=== PATIENT | male | born 1945 | race Caucasian/White ===

== ENCOUNTER 2018-10-06 12:03 | Observation (INO) | payer MEDICARE ==
[~2018-10-06] VITALS: Ht 182.9 cm; Wt 105.2 kg
--- OUTSIDE RECORDS SUMMARY | 2018-10-06 12:06 | XMS REPORT | Clinical Summary ---
Author Author [facility] Address Unknown Phone Unavailable Care Team Providers Care Sales Product Manager Name Role Phone Sharpless PCP Allergies No Known Allergies Medications Not on file Active Problems Not on file Social History Date Tobacco Use Types Packs/Day Years Used Never Assessed Sex Assigned at Date Recorded Not on file Industry Job Start Date Occupation Not on file Not on file Not on file Travel End Travel History Travel Start No recent travel history available. Last Filed Vital Signs Not on file Plan of Treatment Not on file Results Not on fileafter 10/05/2017 Insurance Payer Benefit Subscriber ID Type Phone Address Plan / Group [facility] x[facility]xx MEDICARE ADV #[id number] [facility] (Home) [place] [address]
[2018-10-06] MEDS ORDERED: ONDANSETRON HCL INJ 2MG/ML 2ML 2 MG/ML VIAL IV ONE (12:45)
[2018-10-06] MEDS ORDERED: DIATRIZOATE MEGL/DIATRIZOA SOD 30 ML BTL PO ONE (12:52)
[2018-10-06] MEDS ORDERED: MORPHINE SULFATE INJ 4 MG/ML INJ 1ML IV ONE (13:00)
[2018-10-06 13:04] LABS: BASOPHILS % 0.3 % (0.0-1.0); EOSINOPHILS # (AUTO) 0.1 (0.0-0.4); EOSINOPHILS % 0.9 % (0.0-6.0); HEMATOCRIT 40.5 % (38.2-49.6); HEMOGLOBIN 13.8 g/dL (14.0-18.0); LYMPHOCYTES # (AUTO) 2.1 (1.0-3.2); LYMPHOCYTES % 15.9 % (18.0-39.1); MEAN CORPUSCULAR HEMOGLOBIN 30.1 pg (28-32); MEAN CORPUSCULAR HGB CONC 34.1 g/dL (31-35); MEAN CORPUSCULAR VOLUME 88.2 fL (81-99); MONOCYTES # (AUTO) 1.1 (0.2-0.8); MONOCYTES % 8.1 % (4.4-11.3); NEUTROPHILS # (AUTO) 9.6 (2.1-6.9); NEUTROPHILS % 74.3 % (38.7-80.0); PLATELET COUNT 130 x10e3/uL (140-360); RED BLOOD COUNT 4.59 x10e6/uL (4.3-5.7); RED CELL DISTRIBUTION WIDTH 13.1 % (11.7-14.4)
[2018-10-06 13:05] LABS: BILIRUBIN,URINE SMALL (NEGATIVE); CLARITY,URINE SL CLOUDY (CLEAR); COLOR,URINE YELLOW (YELLOW); KETONES,URINE TRACE (NEGATIVE); LEUKOCYTE ESTERASE ,URINE NEGATIVE (NEGATIVE); NITRITE,URINE NEGATIVE (NEGATIVE); PROTEIN,URINE DIPSTICK 2+ (NEGATIVE); URINE UROBILINOGEN 1 mg/dL (0.2 - 1)
[2018-10-06 13:21] LABS: BACTERIA,URINE MANY /HPF; EPITHELIAL CELLS,URINE MANY /LPF; WBC,URINE (MAN) 0-5 /HPF (0-5)
[2018-10-06 13:23] LABS: ALBUMIN 3.1 g/dL (3.5-5.0); ALBUMIN/GLOBULIN RATIO 0.9 (0.8-2.0); ANION GAP 12.6 mmol/L (8-16); CALCIUM 9.3 mg/dL (8.4-10.2); CREATININE, SERUM 1.69 mg/dL (0.72-1.25); POTASSIUM 3.6 mmol/L (3.5-5.1)
--- NOTE | 2018-10-06 14:54 | Diagnostic Imaging Report ---
EXAM: CT Abdomen and Pelvis WITHOUT contrast INDICATION: ^LLQ abdominal pain r/o diverticulitis COMPARISON: None. TECHNIQUE: Abdomen and pelvis were scanned utilizing a multidetector helical scanner from the lung base to the pubic symphysis without administration of IV contrast. Absence of intravenous contrast decreases sensitivity for detection of focal lesions and vascular pathology. Coronal and sagittal reformations were obtained. Routine protocol was performed. IV CONTRAST: None ORAL CONTRAST: Gastrografin COMPLICATIONS: None RADIATION DOSE: Total DLP: 669.13 mGy*cm Estimated effective dose: (DLP x 0.015 x size factor) mSv CTDIvol has been reviewed. It is below the limits set by the Radiation Protocol Committee (RPC). Dose modulation, iterative reconstruction, and/or weight based adjustment of the mA/kV was utilized to reduce the radiation dose to as low as reasonably achievable. FINDINGS: LINES and TUBES: None. LOWER THORAX: Unremarkable HEPATOBILIARY: The liver is diffuse hypodense compared to the spleen, consistent with diffuse hepatic diffuse hepatic steatosis. No focal hepatic lesions. No biliary ductal dilation. GALLBLADDER: No radio-opaque stones or sludge. No wall thickening. Decompressed. SPLEEN: No splenomegaly. PANCREAS: No focal masses or ductal dilatation. ADRENALS: No adrenal nodules KIDNEYS/URETERS: No hydronephrosis. 6.9 cm cyst in the inferior pole of the right kidney. 3.6 cm cyst in the superior pole of the left kidney. No stones. GI TRACT: No abnormal distention, wall thickening, or evidence of bowel obstruction. Acutely inflamed sigmoid colon with multiple diverticula and wall thickening and surrounding inflammatory changes. Additional scattered colonic diverticula. Appendix is normal. PELVIC ORGANS/BLADDER: Unremarkable. LYMPH NODES: No lymphadenopathy. VESSELS: There is mild atherosclerotic disease in the aorta and major arterial branches. Severe atherosclerotic calcifications in the left common iliac artery with dilatation measuring up to 2.2 cm. Right common iliac artery measures 1.3 cm. PERITONEUM / RETROPERITONEUM: No free air or fluid. BONES: There are degenerative changes in the lumbar spine. SOFT TISSUES: Bilateral fat-containing direct inguinal hernias. Surgical clip in the right inguinal region. Fluid in the left inguinal canal. IMPRESSION: 1. Significant acute sigmoid diverticulitis. Given patient's age, recommend follow-up with colonoscopy to exclude possible underlying neoplasm. 2. Diffuse hepatic steatosis. Signed by: Dr. Joseph Umanzor M.D. on 10/06/2018 2:51 PM
[2018-10-06] MEDS ORDERED: ONDANSETRON HCL INJ 2MG/ML 2ML 2 MG/ML VIAL IV PRN (15:15)
--- OUTSIDE RECORDS SUMMARY | 2018-10-06 15:16 | XMS REPORT ---
Author Author [facility] Address Unknown Phone Unavailable Care Team Providers Care Antique Clocks Repairer Name Role Phone GAYATHRI Christiane JESSICA Unavailable Unavailable Problems This patient has no known problems. Allergies, Adverse Reactions, Alerts This patient has no known allergies or adverse reactions. Medications This patient has no known medications. Results Test Description Test Time Test Comments Text Results Atomic Results Result Comments CT ABDOMEN/PELVIS WO 2018-10-06 14:46:00 [place] [address] Patient Name: SULEMAN BRADSHAW MR #: [id number] : 1945 Age/Sex: 73/M Req #: [id number] Adm Physician: Ordered by: ORLIN HAILE ALARM ADJUSTER Report #: [id number] Location: ER Room/Bed: Procedure: [id number] CT/CT ABDOMEN/PELVIS WO Exam Date: 10/06/18 Exam Time: 1400 REPORT STATUS: Signed EXAM: CT Abdomen and Pelvis WITHOUT contrast INDIC ATION: LLQ abdominal pain r/o diverticulitis COMPARISON: None. TECHNIQUE: Abdomen and pelvis were scanned utilizing a multidetector helical scanner from the lung base to the pubic symphysis without administration of IV contrast. Absence of intravenous contrast decreases sensitivity for detection of focal lesions and vascular pathology. Coronal and sagittal reformations were obtained. Routine protocol was performed. IV CONTRAST: None ORAL CONTRAST: Gastrografin COMPLICATIONS: None RADIATION DOSE: Total DLP: 669.13 mGy*cm Estimated effective dose: (DLP x 0.015 x size factor) mSv CTDIvol has been reviewed. It is below the limits set by the Radiation Protocol Committee (RPC). Dose modulation, iterative reconstruction, and/or weight based adjustment of the mA/kV was utilized to reduce the radiation dose to as low as reasonably achievable. FINDINGS: LINES and TUBES: None. LOWER THORAX: Unremarkable HEPATOBILIARY: The liver is diffuse hypodense compared to the spleen, consistent with diffuse hepatic diffuse hepatic steatosis. No focal hepatic lesions. No biliary ductal dilation. GALLBLADDER: No radio-opaque stones or sludge. No wall thickening. Decompressed. SPLEEN: No splenomegaly. PANCREAS: No focal masses or ductal dilatation. ADRENALS: No adrenal nodules KIDNEYS/URETERS: No hydronephrosis. 6.9 cm cyst in the inferior pole of the right kidney. 3.6 cm cyst in the superior pole of the left kidney. No stones. GI TRACT: No abnormal distention, wall thickening, or evidence of bowel obstruction. Acutely inflamed sigmoid colon with multiple diverticula and wall thickening and surrounding inflammatory changes. Additional scattered colonic diverticula. Appendix is normal. PELVIC ORGANS/BLADDER: Unremarkable. LYMPH NODES: No lymphadenopathy. VESSELS: There is mild atherosclerotic disease in the aorta and major arterial branches. Severe atherosclerotic calcifications in the left common iliac artery with dilatation measuring up to 2.2 cm. Right common iliac artery measures 1.3 cm. PERITONEUM / RETROPERITONEUM: No free air or fluid. BONES: There are degenerative changes in the lumbar spine. SOFT TISSUES: Bilateral fat-containing direct inguinal hernias. Surgical clip in the right inguinal region. Fluid in the left inguinal canal. IMPRESSION: 1. Significant acute sigmoid diverticulitis. Given patient's age, recommend follow-up with colonoscopy to exclude possible underlying neoplasm. 2. Diffuse hepatic steatosis. Signed by: Dr. [place] Umanzor M.D. on 10/06/2018 2:51 PM Dictated By: FLORIDA UMANZOR MD [id number] Transcribed By: SHIELA on 10/06/18 145 COPY TO: ORLIN HAILE NP
--- OUTSIDE RECORDS SUMMARY | 2018-10-06 15:16 | XMS REPORT | Clinical Summary ---
Author Author [facility] Address Unknown Phone Unavailable Care Team Providers Care Derrick Builder Name Role Phone Sharpless PCP Allergies No [...] ID Type Phone Address Plan / [facility] MEDIC[facility] ADV #[id number] [facility] (Home) [place] [address]
--- NOTE | 2018-10-06 15:35 | NUR ---
multiple attempts to call report and placed on continuous hold.
--- NOTE | 2018-10-06 15:44 | NUR ---
pt is trying to reach his home health nurse to obtain his medication list still.
[2018-10-06] MEDS ORDERED: LEVOFLOXACIN 500MG/D5W 100ML 100 ML IV SCH ×2 (16:00→16:45)
[2018-10-06] MEDS: METRONIDAZOLE 500MG/NS 100ML 100 ML IV SCH (16:09)
[2018-10-06] MEDS: SODIUM CHLORIDE 0.9% 1000ML 1,000 ML IV SCH ×2 (16:09→23:03)
[2018-10-06 17:00] VITALS: BP 172/84
--- NOTE | 2018-10-06 17:00 | NUR ---
RECEIVED TO RM AAOX3 NO DISTRESS NOTED, IVF INFUSING TO L AC 20G NO SS OF INFILTRATION NOTED, ORIENTED TO RM VOICED UNDERSTANDING, DENIES PAIN AT THIS TIME, PT USES [facility]IGN[facility] AND HAS A HOME HEALTH NURSE THAT PROVIDES CARE FOR HIM 3X A WEEK, PT HAS NO HOME MEDICATIONS WITH HIM TO VERIFY, SPOKE WITH NICK GEOLOGICAL TECHNICIAN OF [facility] [phone], FOR VERIFICATION OF PATIENTS HOME MEDICATIONS, COMPANY WILL FAX MEDICATIONS TO HOSPITAL FAX NUMBER [phone] PROVIDE. CALL LIGHT IN REACH BED LOW/LOCKED POSITION, WILL CONTINUE TO MONITOR
[2018-10-06] MEDS ORDERED: CLONIDINE HCL 0.1 MG TAB PO PRN (17:45)
[2018-10-06] MEDS: LEVOFLOXACIN 500MG/D5W 100ML 100 ML IV SCH (18:31)
--- NOTE | 2018-10-06 19:33 | NUR ---
REPORT GIVEN TO ONCOMING SHIFT, PT STABLE, NO DISTRESS NOTED,CALL LIGHT IN REACH
[2018-10-06 21:00] VITALS: BP 191/89
[2018-10-06 23:02] VITALS: BP 191/89
[2018-10-07] VITALS (9 sets, daily range): BP systolic 145–201; BP diastolic 66–91
[2018-10-07] MEDS: METRONIDAZOLE 500MG/NS 100ML 100 ML IV SCH ×3 (01:44→17:32)
[2018-10-07] MEDS ORDERED: ASPIRIN81 MG PO (02:53)
[2018-10-07] MEDS ORDERED: LISINOPRIL10 MG PO (02:53)
[2018-10-07] MEDS ORDERED: ZETIA10 MG PO (02:53)
[2018-10-07] MEDS ORDERED: OMEPRAZOLE20 MG PO (02:53)
[2018-10-07] MEDS ORDERED: VOLTAREN100 GM (02:53)
[2018-10-07] MEDS ORDERED: SARNA ANTI-ITC222 ML TP (02:53)
[2018-10-07] MEDS ORDERED: ATENOLOL50 MG (02:53)
[2018-10-07] MEDS ORDERED: ALLEGRA ALLERG180 MG PO (02:53)
[2018-10-07] MEDS ORDERED: POTASSIUM BICARB1 GM PO (02:53)
[2018-10-07] MEDS ORDERED: BENZONATATE100 MG PO (02:53)
[2018-10-07] MEDS ORDERED: BENADRYL ITCH28.3 GM EXT (02:53)
[2018-10-07] MEDS ORDERED: VITAMIN D400 UNIT PO (02:53)
[2018-10-07] MEDS: SODIUM CHLORIDE 0.9% 1000ML 1,000 ML IV SCH (05:36)
[2018-10-07 06:25] LABS: BASOPHILS # (AUTO) 0.1 (0.0-0.1); BASOPHILS % 0.5 % (0.0-1.0); EOSINOPHILS # (AUTO) 0.2 (0.0-0.4); EOSINOPHILS % 1.2 % (0.0-6.0); HEMATOCRIT 37.5 % (38.2-49.6); HEMOGLOBIN 12.8 g/dL (14.0-18.0); LYMPHOCYTES # (AUTO) 2.5 (1.0-3.2); LYMPHOCYTES % 20.4 % (18.0-39.1); MEAN CORPUSCULAR HEMOGLOBIN 29.8 pg (28-32); MEAN CORPUSCULAR HGB CONC 34.1 g/dL (31-35); MEAN CORPUSCULAR VOLUME 87.4 fL (81-99); MONOCYTES # (AUTO) 0.9 (0.2-0.8); MONOCYTES % 7.1 % (4.4-11.3); NEUTROPHILS # (AUTO) 8.5 (2.1-6.9); NEUTROPHILS % 70.3 % (38.7-80.0); PLATELET COUNT 120 x10e3/uL (140-360); RED BLOOD COUNT 4.29 x10e6/uL (4.3-5.7); RED CELL DISTRIBUTION WIDTH 13.1 % (11.7-14.4)
[2018-10-07 06:49] LABS: ALBUMIN 2.8 g/dL (3.5-5.0); ALBUMIN/GLOBULIN RATIO 0.9 (0.8-2.0); ANION GAP 13.5 mmol/L (8-16); CALCIUM 9.1 mg/dL (8.4-10.2); CREATININE, SERUM 1.36 mg/dL (0.72-1.25); POTASSIUM 3.5 mmol/L (3.5-5.1)
--- NOTE | 2018-10-07 07:00 | NUR ---
BEDSIDE ROUNDS COMPLETE NO DISTRESS NOTED, UPDATED ON POC VOICED UNDERSTANDING, DENIES PAIN AT THIS TIME, IVF INFUSING TO L AC 20G NO SS OF INFILTRATION NOTED, NO OTHER CO VOICED CALL LIGHT IN REACH WILL CONTINUE OT MONITOR
[2018-10-07] MEDS ORDERED: ACETAMINOPHEN 325 MG TAB PO PRN (11:30)
[2018-10-07] MEDS: MORPHINE SULFATE INJ 4 MG/ML INJ 1ML IV PRN ×2 (13:52→19:41)
[2018-10-07] MEDS ORDERED: LISINOPRIL 20 MG TAB PO SCH (17:00)
[2018-10-07] MEDS: LOSARTAN POTASSIUM 100 MG TAB PO SCH (17:32)
[2018-10-07] MEDS: LEVOFLOXACIN 500MG/D5W 100ML 100 ML IV SCH (18:34)
[2018-10-08] VITALS: BP 165/83
[2018-10-08] MEDS: METRONIDAZOLE 500MG/NS 100ML 100 ML IV SCH ×2 (00:42→08:00)
[2018-10-08 04:00] VITALS: BP 143/81
[2018-10-08 06:01] LABS: BASOPHILS # (AUTO) 0.1 (0.0-0.1); BASOPHILS % 0.6 % (0.0-1.0); EOSINOPHILS # (AUTO) 0.2 (0.0-0.4); EOSINOPHILS % 1.7 % (0.0-6.0); HEMATOCRIT 38.3 % (38.2-49.6); HEMOGLOBIN 12.5 g/dL (14.0-18.0); LYMPHOCYTES # (AUTO) 2.7 (1.0-3.2); LYMPHOCYTES % 24.8 % (18.0-39.1); MEAN CORPUSCULAR HEMOGLOBIN 29.4 pg (28-32); MEAN CORPUSCULAR HGB CONC 32.6 g/dL (31-35); MEAN CORPUSCULAR VOLUME 90.1 fL (81-99); MONOCYTES # (AUTO) 0.6 (0.2-0.8); MONOCYTES % 5.8 % (4.4-11.3); NEUTROPHILS # (AUTO) 7.2 (2.1-6.9); NEUTROPHILS % 66.5 % (38.7-80.0); PLATELET COUNT 123 x10e3/uL (140-360); RED BLOOD COUNT 4.25 x10e6/uL (4.3-5.7)
[2018-10-08 06:21] LABS: ANION GAP 8.6 mmol/L (8-16); CALCIUM 8.8 mg/dL (8.4-10.2); CREATININE, SERUM 1.53 mg/dL (0.72-1.25); POTASSIUM 4.6 mmol/L (3.5-5.1)
--- NOTE | 2018-10-08 07:15 | NUR ---
RECEIVED PATIENT ASLEEP IN BED NO SIGNS OF DISTRESS. BED LOW, WHEELS LOCKED, SIDE RAILS X2. CALL LIGHT IN REACH WILL CONTINUE TO MONITOR.
[2018-10-08] MEDS: LOSARTAN POTASSIUM 100 MG TAB PO SCH (08:00)
[2018-10-08 08:12] VITALS: BP 143/81
[2018-10-08] MEDS ORDERED: FAMOTIDINE 20 MG TAB PO SCH (09:00)
[2018-10-08] MEDS ORDERED: EZETIMIBE 10 MG TAB PO SCH (09:00)
[2018-10-08] MEDS ORDERED: ATENOLOL 50 MG TAB PO SCH (09:00)
--- NOTE | 2018-10-08 09:15 | NUR ---
PATIENT A/O X3, EVEN RESPIRATIONS ON RA. PATIENT AMBULATES WITH WALKER. BOWEL SOUNDS ACTIVE, SKIN INTACT, NO EDEMA. LEFT AC 20 GAUGE IV SL. VITAL SIGNS STABLE. NO DISCOMFORT OR SIGNS OF DISTRESS AT THIS TIME. CALL LIGHT IN REACH. WILL CONTINUE TO MONITOR.
[2018-10-08 09:58] VITALS: BP 143/81
--- NOTE | 2018-10-08 10:09 | NUR ---
EDUCATED ABOUT IMM, SIGNED, FILED IN CHART, WITH COPY LEFT WITH FAMILY AT BEDSIDE.
[2018-10-08 11:49] VITALS: BP 174/89
--- NOTE | 2018-10-08 12:13 | Discharge Summary ---
PRIMARY CARE PHYSICIAN: Dr. Barbara Lepe. FINAL DIAGNOSIS: Acute diverticulitis. SECONDARY DIAGNOSES: 1. Stage 3 chronic kidney disease, stable. 2. Mild thrombocytopenia, stable. CONSULTANTS: None. PROCEDURES/STUDIES PERFORMED: CT of the abdomen pelvis. HISTORY: Per H and P. HOSPITAL COURSE: The patient was admitted. The patient responded to IV Levaquin and Flagyl very well, currently the patient is pain free, tolerating soft diet and will go home today on five more days of oral Levaquin and Flagyl. The patient will likely need an outpatient colonoscopy once the infection has completely resolved. I have updated his primary care doctor about this hospitalization. The patient was seen and examined today. Of note, there is some possibility that the patient might be allergic to FEROZ inhibitor. I will switch his FEROZ inhibitor to the losartan. CONDITION ON DISCHARGE: Improved. DISCHARGE MEDICATIONS: Please see medication reconciliation form. MD HEMALATHA Mcarthur/MICHELLE /[id number] cc: [facility]
[2018-10-08] MEDS ORDERED: LEVAQUIN500 MG PO (12:36)
[2018-10-08] MEDS ORDERED: FLAGYL250 MG PO (12:36)
[2018-10-08] MEDS ORDERED: LOSARTAN POTASS25 MG PO (12:37)
--- NOTE | 2018-10-08 12:55 | NUR ---
REMOVED PATIENTS IV. CATHETER TIP INTACT AND PRESSURE DRESSING APPLIED.
--- NOTE | 2018-10-08 13:27 | NUR ---
PATIENT DISCHARGED FROM FACILITY. PATIENT GATHERED ALL PERSONAL BELONGINGS, DISCHARGE INSTRUCTIONS, FOLLOW UP INFORMATION AND PRESCRIPTIONS. PATIENT VERBALIZED UNDERSTANDING. LEFT UNIT IN WHEELCHAIR AND WENT HOME VIA PRIVATE AUTO. NO SIGNS OF DISTRESS LEAVING FACILITY.
== END 2018-10-08 13:29 | disposition home or self-care (01) ==
LOC: ER 12:03 → INTOOBSV 15:03 → ERHOLD 15:03 → MED/SURG 17:05
PROVIDERS: ADMIT Internal Medicine; ATTEND Internal Medicine
DX: K57.32 Diverticulitis of large intestine without perforation or abscess without bleeding (principal); L50.8 Other urticaria; N18.3 Chronic kidney disease, stage 3 (moderate); F03.90 Unspecified dementia, unspecified severity, without behavioral disturbance, psychotic disturbance, mood disturbance, and anxiety; Z86.73 Personal history of transient ischemic attack (TIA), and cerebral infarction without residual deficits; M54.9 Dorsalgia, unspecified; F17.210 Nicotine dependence, cigarettes, uncomplicated; Z82.49 Family history of ischemic heart disease and other diseases of the circulatory system; N17.9 Acute kidney failure, unspecified; D69.6 Thrombocytopenia, unspecified; I12.9 Hypertensive chronic kidney disease with stage 1 through stage 4 chronic kidney disease, or unspecified chronic kidney disease; Z94.0 Kidney transplant status
CPT/HCPCS: 36415 ×3; 74176; 80048; 80053 ×2; 81001; 82150; 83690; 85025 ×3; 99284; G0378 ×3; J1956 ×2; J2270; J2405; J7030 ×2

== ENCOUNTER 2019-04-06 17:52 | Emergency (ER) | payer MEDICARE ==
[~2019-04-06] VITALS: Ht 208.3 cm; Wt 105.2 kg
[~2019-04-06 17:52] MED LIST: ALLEGRA ALLERG180 MG PO; ASPIRIN81 MG PO; ATENOLOL50 MG; BENADRYL ITCH28.3 GM EXT; BENZONATATE100 MG PO; FLAGYL250 MG PO; LEVAQUIN500 MG PO; LISINOPRIL10 MG PO; LOSARTAN POTASS25 MG PO; OMEPRAZOLE20 MG PO; POTASSIUM BICARB1 GM PO; SARNA ANTI-ITC222 ML TP; VITAMIN D400 UNIT PO; VOLTAREN100 GM; ZETIA10 MG PO
--- NOTE | 2019-04-06 18:30 | NUR ---
NO ANSWER FOR WRITTEN DISCHARGE INSTRUCTIONS AT THIS TIME
== END 2019-04-06 18:30 | disposition home or self-care (01) ==
LOC: ER 17:52
DX: H92.02 Otalgia, left ear (principal); W22.8XXA Striking against or struck by other objects, initial encounter; Y93.E1 Activity, personal bathing and showering; Y92.002 Bathroom of unspecified non-institutional (private) residence as the place of occurrence of the external cause
CPT/HCPCS: 99282

== ENCOUNTER 2020-04-10 11:40 | Emergency (ER) | payer MEDICARE ==
[~2020-04-10] VITALS: Ht 208.3 cm; Wt 105.2 kg
--- NOTE | 2020-04-10 11:53 | Emergency Department Note ---
History of Present Illnes History of Present Illness Chief Complaint: Genitourinary History of Present Illness This is a 74 year old male Chief Complaint Comment Patient in from home with complaints of lower abdominal pain that started about 4 days ago which has progressed to diarrhea today. Patient reports he was admitted for similar symptoms about two years ago but had blood in his urine that time. Patient denies blood in his urine on this visit. Patient reports that he feels like it is going away on its own and is feeling better but thought he should get checked out anyways. Historian: Patient Arrival Mode: Car Fmd Teacher Required: No Onset (how long ago): day(s) (4) Location: Lower pelvis Quality: burning Radiation: Reports non-radiation Severity: mild Onset quality: gradual Duration (how long): day(s) (4) Timing of current episode: intermittent Progression: improving Chronicity: recurrent Context: Denies recent illness, Denies recent surgery Relieving factors: none Exacerbating factors: none Associated symptoms: Reports denies other symptoms Treatments prior to arrival: none Past Medical/Family History Physician Review I have reviewed the patient's past medical and family history. Any updates have been documented here. Past Medical History Recent Fever: No Clinical Suspicion of Infectio: No New/Unexplained Change in Ment: No Past Medical History: Hypertension, CVA Other Medical History: DEMENTIA Past Surgical History: Hernia Repair Other Surgery: UNKNOWN Other Last Tetanus: UNKNOWN Review of Systems Review of Systems Constitutional: Reports no symptoms EENTM: Reports no symptoms Cardiovascular: Reports no symptoms Respiratory: Reports no symptoms Gastrointestinal: Reports as per HPI, Reports abdominal pain Genitourinary: Reports no symptoms Musculoskeletal: Reports no symptoms Integumentary: Reports no symptoms Neurological: Reports no symptoms Psychological: Reports no symptoms Endocrine: Reports no symptoms Hematological/Lymphatic: Reports no symptoms Physical Exam Related Data Allergies: Coded Allergies: No Known Allergies (Unverified , 10/06/18) Triage Vital Signs Vital Signs Date Time Temp Pulse Resp B/P (MAP) Pulse Ox O2 Delivery O2 Flow Rate FiO2 04/10/20 11:43 98.3 67 16 183/84 100 Room Air Vital signs reviewed: Yes Physical Exam CONSTITUTIONAL Constitutional: Present well-developed, Present well-nourished HENT HENT: Present normocephalic, Present atraumatic, Present oropharynx clear/moist, Present nose normal HENT L/R: Present left ext ear normal, Present right ext ear normal EYES Eyes: Reports PERRL, Reports conjunctivae normal NECK Neck: Present ROM normal PULMONARY Pulmonary: Present effort normal, Present breath sounds normal CARDIOVASCULAR Cardiovascular: Present regular rhythm, Present heart sounds normal, Present capillary refill normal, Present normal rate GASTROINTESTINAL Abdominal: Present soft, Present nontender, Present bowel sounds normal GENITOURINARY Genitourinary: Present exam deferred SKIN Skin: Present warm, Present dry MUSCULOSKELETAL Musculoskeletal: Present ROM normal NEUROLOGICAL Neurological: Present alert, Present oriented x 3, Present no gross motor or sensory deficits PSYCHOLOGICAL Psychological: Present mood/affect normal, Present judgement normal Assessment & Plan Medical Decision Making MDM 74 y.o M presents for lower pelvic burning intermittently. Exam benign Diff includes UTI vs MSK pain vs appendicitis. Labs benign, doubt appendicitis. UTI on UA and will Rx keflex Assessment & Plan Final Impression: (1) UTI (urinary tract infection) Depart Disposition: HOME, SELF-CARE Last Vital Signs Date Time Temp Pulse Resp B/P (MAP) Pulse Ox O2 Delivery O2 Flow Rate FiO2 04/10/20 11:43 98.3 67 16 183/84 100 Room Air Home Meds Reported Medications Losartan Potassium (LOSARTAN POTASSIUM) 25 Mg Tablet, 50 MG PO BID 10/08/18 Metronidazole (FLAGYL) 250 Mg Tablet, 500 MG PO TID 10/08/18 Levofloxacin (LEVAQUIN) 500 Mg Tablet, 500 MG PO DAILY, TAB 10/08/18 Menthol/Camphor (SARNA ANTI-ITCH LOTION) 222 Ml Lotion, 0.5 % TP BID 10/07/18 Potassium Bicarbonate (POTASSIUM BICARBONATE) 1 Gm Granules, 25 MEQ PO DAILY 10/07/18 Aspirin (ASPIRIN) 81 Mg Tab.chew, 81 PO BID 10/07/18 Ezetimibe (ZETIA) 10 Mg Tablet, 10 MG PO DAILY, #30 TAB 10/07/18 Omeprazole (OMEPRAZOLE) 20 Mg Capsule.dr, 20 MG PO BID 10/07/18 Atenolol (ATENOLOL) 50 Mg Tablet, 25 MG DAILY 10/07/18 Cholecalciferol (Vitamin D3) (VITAMIN D) 400 Unit Capsule, 800 UNITS PO DAILY, #30 CAP 10/07/18 Diclofenac Sodium (VOLTAREN) 100 Gm Gel..gram., 1 % BID PRN for ALLERGY THERAPEUTICALLY SUBSTITUTED WITH IBUPROFEN 600MG 10/07/18 Benzonatate (BENZONATATE) 100 Mg Capsule, 100 MG PO TID PRN for COUGH, CAP 10/07/18 Diphenhydramine Hcl/Zinc Acet (BENADRYL ITCH STOPPING CRM) 28.3 Gm Cream..g., 0.5 % EXT PRN for ITCHING MDD 3 to 4 times daily 10/07/18 Fexofenadine Hcl (TARA ALLERGY) 180 Mg Tablet, 360 MG PO DAILY 10/07/18 JUSTINO NICOLE MD Apr 10, 2020 11:53
[2020-04-10 12:02] LABS: BASOPHILS # (AUTO) 0.1 (0.0-0.1); BASOPHILS % 0.6 % (0.0-1.0); EOSINOPHILS # (AUTO) 0.2 (0.0-0.4); EOSINOPHILS % 1.4 % (0.0-6.0); HEMATOCRIT 41.7 % (38.2-49.6); HEMOGLOBIN 13.8 g/dL (14.0-18.0); LYMPHOCYTES # (AUTO) 2.1 (1.0-3.2); LYMPHOCYTES % 17.2 % (18.0-39.1); MEAN CORPUSCULAR HEMOGLOBIN 29.9 pg (28-32); MEAN CORPUSCULAR HGB CONC 33.1 g/dL (31-35); MEAN CORPUSCULAR VOLUME 90.5 fL (81-99); MONOCYTES % 8.1 % (4.4-11.3); NEUTROPHILS % 72.3 % (38.7-80.0); PLATELET COUNT 120 x10e3/uL (140-360); RED BLOOD COUNT 4.61 x10e6/uL (4.3-5.7); RED CELL DISTRIBUTION WIDTH 13.1 % (11.7-14.4)
[2020-04-10 12:11] LABS: BILIRUBIN,URINE NEGATIVE (NEGATIVE); CLARITY,URINE CLEAR (CLEAR); COLOR,URINE YELLOW (YELLOW); KETONES,URINE NEGATIVE (NEGATIVE); LEUKOCYTE ESTERASE ,URINE NEGATIVE (NEGATIVE); NITRITE,URINE NEGATIVE (NEGATIVE); PROTEIN,URINE DIPSTICK 2+ (NEGATIVE); URINE UROBILINOGEN 0.2 mg/dL (0.2 - 1)
[2020-04-10 12:21] LABS: BACTERIA,URINE MANY /HPF; EPITHELIAL CELLS,URINE FEW /LPF; MUCUS,URINE FEW (RARE)
[2020-04-10 12:24] LABS: ALBUMIN 3.6 g/dL (3.5-5.0); ALBUMIN/GLOBULIN RATIO 1.1 (0.8-2.0); CALCIUM 8.7 mg/dL (8.4-10.2); CREATININE, SERUM 1.94 mg/dL (0.72-1.25)
--- OUTSIDE RECORDS SUMMARY | 2020-04-10 13:01 | XMS REPORT | Continuity of Care Document ---
Author Author [facility] t Organization [facility] Address [address] [place] [address] Phone Unavailable Care Team Providers Care Juvenile Court Liaison Name Role Phone NO, PCP PCP Unavailable Christiane TRINH Unavailable Payers Payer Name Policy Type Policy Number Effective Date Expiration Date Kath [employer] Medicare Advantage [id number] [facility] Problems This patient has no known problems. Allergies, Adverse Reactions, Alerts This patient has no known allergies or adverse reactions. Social History Social Habit Start Date Stop Date Quantity Comments Source Sex Assigned At [facility] Medications Ordered Medication Name Filled Medication Name Start Date Stop Da te Current Medication? Ordering Clinician Indication Dosage Frequency Signature (SIG) Comments Components Source Aspirin 81 Mg Tab.chew Aspirin 81 Mg Tab.chew Yes 81 Twice A Day [facility] Atenolol 50 Mg Tablet Atenolol 50 Mg Tablet Yes 25 Daily [facility] Benzonatate 100 Mg Capsule Benzonatate 100 Mg Capsule Yes 100 Three Times A Day as needed for Cough [facility] Cholecalciferol (Vitamin D3) (Vitamin D) 400 Unit Caps ule Cholecalciferol (Vitamin D3) (Vitamin D) 400 Unit Capsule Yes 800 Daily [facility] Diclofenac Sodium (Voltaren) 100 Gm Gel..gram. Diclofe nac Sodium (Voltaren) 100 Gm Gel..gram. Yes 1 Twice A Day as needed fo r Allergy [facility] Diphenhydramine Hcl/Zinc Acet (Benadryl Itch Stopping Crm) 28.3 Gm Cream..g. Diphenhydramine Hcl/Zinc Acet (Benadryl Itch Stopping Crm) 28.3 Gm Cream..g. Yes .5 as needed for Itching [facility] Ezetimibe (Zetia) 10 Mg Tablet Ezetimibe (Zetia) 10 Mg Tablet Yes 10 Daily [facility] Fexofenadine Hcl (Margarita Allergy) 180 Mg Tablet Fexof enadine Hcl (Margarita Allergy) 180 Mg Tablet Yes 360 Daily [facility] Levofloxacin (Levaquin) 500 Mg Tablet Levofloxacin (Levaquin) 500 M g Tablet Yes 500 Daily [facility] Losartan Potassium 25 Mg Tablet Losartan Potassium 25 Mg Tablet Yes 50 Twice A Day [facility] Menthol/Camphor (Sarna Anti-Itch Lotion) 222 Ml Lotion Menthol/Camphor (Sarna Anti-Itch Lotion) 222 Ml Lotion Yes .5 Twice A Day [facility] Metronidazole (Flagyl) 250 Mg Tablet Metronidazole (Flagyl) 250 Mg Tablet Yes 500 Three Times A Day [facility] Omeprazole 20 Mg Capsule. Omeprazole 20 Mg Capsule. Yes 20 Twice A Day [facility] Potassium Bicarbonate 1 Gm Granules Potassium Bicarbonate 1 Gm Granul es Yes 25 Daily [facility] Lisinopril 10 Mg Tablet, 20 Mg Oral Lisinopril 10 Mg Tablet, 20 Mg Oral 2018-10-08 00:00:00 No 20 Twice A Day [facility] Procedures Procedure Date / Time Performed Performing Clinician [facility] e CT of abdomen and pelvis without contrast 2018-10-06 00:00:0 0 ORLIN HAILE [facility] Encounters Start Date/Time End Date/Time Encounter Type Admission Type Attendi [facility] Facility Care Department Encounter ID Source 2019-04-06 17:52:00 2019-04-06 18:30:00 Departed Emergency Room [facility] [id number] [facility] 2018-10-06 15:03:00 2018-10-08 13:29:00 Discharged Inpatient (obs) 1 JESSICA TRINH [facility] [id number] [facility] Results Test Description Test Time Test Comments Results Result Comments Source Sodium Level 2018-10-08 06:25:00 Test Item Sodium Level (test code = 2951-2) 140 136-145 [facility]Potassium Mrmat8584-25-10 06:25:00* Test Item Value Reference Range Interpretation Comments Potassium Level (test code = 2823-3) 4.6 3.5-5.1 [facility] HospitalChloride Lcibt8419-11-51 06:25:00* Test Item Value Reference Range Interpretation Comments Chloride Level (test code = 2075-0) 110 98-107 H [facility] HospitalCarbon Dioxide Xnvyz7209-68-24 06:25:00* Test Item Value Reference Range Interpretation Comments Carbon Dioxide Level (test code = 2028-9) 26 - [facility] HospitalAnion Wqj1042-04-82 06:25:00* Test Item Value Reference Range Interpretation Comments Anion Gap (test code = 39497-6) 8.6 8-16 [facility]Blood Urea Vfvbvlcn0678-89-36 06:25:00* Test Item Value Reference Range Interpretation Comments Blood Urea Nitrogen (test code = 3094-0) 17 7-26 [facility] HospitalCreatinine2019-05-27 06:25:00* Test Item Value Reference Range Interpretation Comments Creatinine (test code = 2160-0) 1.53 0.72-1.25 H [facility] HospitalBUN/Creatinine Mqdat0681-46-71 06:25:00* Test Item Value Reference Range Interpretation Comments BUN/Creatinine Ratio (test code = 3097-3) 11 6-25 [facility] HospitalEstimat Glomerular Filtration Rate 2018-10-08 06:25:00* Test Item Value Reference Range Interpretation Comments Estimat Glomerular Filtration Rate (test code = 271344764) 45 >60 L Ranges were taken from the National Kidney Disease Education Program and the [facility] literature.Reference ranges:60 or greater: Psqeov59-54 ( for 3 consecutive months): Chronic kidney disease 15 or less: Kidney failureMayhill HospitalGlucose Jzgjo6402-06-68 06:25:00* Test Item Value Reference Range Interpretation Comments Glucose Level (test code = XHZ1201) 161 74-118 H [facility] HospitalCalcium Wwshh5118-21-01 06:25:00* Test Item Value Reference Range Interpretation Comments Calcium Level (test code = 67218-7) 8.8 8.4-10.2 [facility] Ieyda9904-05-15 06:25:00* Test Item Value Reference Range Interpretation Comments Sodium Level (test code = 2951-2) 140 136-145 [facility]Potassium Nwyce6360-92-72 06:25:00* Test Item Value Reference Range Interpretation Comments Potassium Level (test code = 2823-3) 4.6 3.5-5.1 [facility] HospitalChloride Wllbk1085-09-58 06:25:00* Test Item Value Reference Range Interpretation Comments Chloride Level (test code = 2075-0) 110 98-107 H [facility] HospitalCarbon Dioxide Wvmxd1430-01-81 06:25:00* Test Item Value Reference Range Interpretation Comments Carbon Dioxide Level (test code = 2028-9) 26 22-29 [facility] HospitalAnion Aob2520-73-98 06:25:00* Test Item Value Reference Range Interpretation Comments Anion Gap (test code = 40064-7) 8.6 8-16 [facility] HospitalBlood Urea Zracbugq5907-40-00 06:25:00* Test Item Value Reference Range Interpretation Comments Blood Urea Nitrogen (test code = 3094-0) 17 7-26 [facility] HospitalCreatinine2019-05-27 06:25:00* Test Item Value Reference Range Interpretation Comments Creatinine (test code = 2160-0) 1.53 0.72-1.25 H [facility] HospitalBUN/Creatinine Fnihy7549-22-73 06:25:00* Test Item Value Reference Range Interpretation Comments BUN/Creatinine Ratio (test code = 3097-3) 11 6-25 [facility] HospitalEstimat Glomerular Filtration Rate 2018-10-08 06:25:00* Test Item Value Reference Range Interpretation Comments Estimat Glomerular Filtration Rate (test code = 240542828) 45 >60 L Ranges were taken from the National Kidney Disease Education Program and the [place] Foundation literature.Reference ranges:60 or greater: Idghoh05-48 ( for 3 consecutive months): Chronic kidney disease 15 or less: Kidney failureMayhill HospitalGlucose Pmchr8144-89-08 06:25:00* Test Item Value Reference Range Interpretation Comments Glucose Level (test code = FTE1537) 161 74-118 H [facility] HospitalCalcium Zmqrt4659-95-61 06:25:00* Test Item Value Reference Range Interpretation Comments Calcium Level (test code = 49900-2) 8.8 8.4-10.2 [facility] HospitalWhite Blood Afhbx0062-18-45 06:03:00* Test Item Value Reference Range Interpretation Comments White Blood Count (test code = 6690-2) 10.86 4.8-10.8 H [facility] HospitalRed Blood Mjahq1903-06-30 06:03:00* Test Item Value Reference Range Interpretation Comments Red Blood Count (test code = 789-8) 4.25 4.3-5.7 L [facility] HospitalHemoglobin2019-05-27 06:03:00* Test Item Value Reference Range Interpretation Comments Hemoglobin (test code = 38510-4) 12.5 14.0-18.0 L [facility] HospitalHematocrit2019-05-27 06:03:00* Test Item Value Reference Range Interpretation Comments Hematocrit (test code = 4544-3) 38.3 38.2-49.6 [facility] HospitalMean Corpuscular Qiqqoq3437-57-89 06:03:00* Test Item Value Reference Range Interpretation Comments Mean Corpuscular Volume (test code = 787-2) 90.1 81-99 [facility] HospitalMe Corpuscular Cdviitzsie8796-72-58 06:03:00* Test Item Value Reference Range Interpretation Comments Mean Corpuscular Hemoglobin (test code = 785-6) 29.4 28-32 [facility] HospitalMean Corpuscular Hemoglobin Concent 2018-10-08 06:03:00* Test Item Value Reference Range Interpretation Comments Mean Corpuscular Hemoglobin Concent (test code = 786-4) 32.6 31-35 [facility] HospitalRed Cell Distribution Qwyik3331-37-02 06:03:00* Test Item Value Reference Range Interpretation Comments Red Cell Distribution Width (test code = 74272-5) 13.0 11.7 -14.4 [facility] HospitalPlatelet Wsipx0683-22-15 06:03:00* Test Item Value Reference Range Interpretation Comments Platelet Count (test code = 777-3) 123 140-360 L [facility] HospitalNeutrophils (%) (Auto)2018-10-08 06:03:00 * Test Item Value Reference Range Interpretation Comments Neutrophils (%) (Auto) (test code = 11053-4) 66.5 38.7-80.0 [facility] HospitalLymphocytes (%) (Auto)2018-10-08 06:03:00 * Test Item Value Reference Range Interpretation Comments Lymphocytes (%) (Auto) (test code = 736-9) 24.8 18.0-39.1 [facility] HospitalMonocytes (%) (Auto)2018-10-08 06:03:00* Test Item Value Reference Range Interpretation Comments Monocytes (%) (Auto) (test code = 5905-5) 5.8 4.4-11.3 [facility] HospitalEosinophils (%) (Auto)2018-10-08 06:03:00 * Test Item Value Reference Range Interpretation Comments Eosinophils (%) (Auto) (test code = 713-8) 1.7 0.0-6.0 [facility] HospitalBasophils (%) (Auto)2018-10-08 06:03:00* Test Item Value Reference Range Interpretation Comments Basophils (%) (Auto) (test code = 706-2) 0.6 0.0-1.0 [facility] HospitalIM GRANULOCYTES %2018-10-08 06:03:00* Test Item Value Reference Range Interpretation Comments IM GRANULOCYTES % (test code = IM GRANULOCYTES %) 0.6 0.0- 1.0 [facility] HospitalNeutrophils # (Auto)2018-10-08 06:03:00* Test Item Value Reference Range Interpretation Comments Neutrophils # (Auto) (test code = 751-8) 7.2 2.1-6.9 H [facility] HospitalLymphocytes # (Auto)2018-10-08 06:03:00* Test Item Value Reference Range Interpretation Comments Lymphocytes # (Auto) (test code = 66239-7) 2.7 1.0-3.2 [facility] HospitalMonocytes # (Auto)2018-10-08 06:03:00* Test Item Value Reference Range Interpretation Comments Monocytes # (Auto) (test code = 742-7) 0.6 0.2-0.8 [facility] HospitalEosinophils # (Auto)2018-10-08 06:03:00* Test Item Value Reference Range Interpretation Comments Eosinophils # (Auto) (test code = 711-2) 0.2 0.0-0.4 [facility] HospitalBasophils # (Auto)2018-10-08 06:03:00* Test Item Value Reference Range Interpretation Comments Basophils # (Auto) (test code = 704-7) 0.1 0.0-0.1 [facility] HospitalAbsolute Immature Granulocyte (auto 2018-10-08 06:03:00* Test Item Value Reference Range Interpretation Comments Absolute Immature Granulocyte (auto (sandor t code = Absolute Immature Granulocyte (auto) 0.07 0-0.1 [facility] HospitalWhite Blood Akyxw2054-98-82 06:03:00* Test Item Value Reference Range Interpretation Comments White Blood Count (test code = 6690-2) 10.86 4.8-10.8 H [facility] HospitalRed Blood Ilkpx1638-03-13 06:03:00* Test Item Value Reference Range Interpretation Comments Red Blood Count (test code = 789-8) 4.25 4.3-5.7 L [facility] HospitalHemoglobin2019-05-27 06:03:00* Test Item Value Reference Range Interpretation Comments Hemoglobin (test code = 77767-1) 12.5 14.0-18.0 L [facility] HospitalHematocrit2019-05-27 06:03:00* Test Item Value Reference Range Interpretation Comments Hematocrit (test code = 4544-3) 38.3 38.2-49.6 [facility] HospitalMean Corpuscular Nljqxo2624-45-10 06:03:00* Test Item Value Reference Range Interpretation Comments Mean Corpuscular Volume (test code = 787-2) 90.1 81-99 [facility] HospitalMean Corpuscular Gwedcsvlmr8728-44-34 06:03:00* Test Item Value Reference Range Interpretation Comments Mean Corpuscular Hemoglobin (test code = 785-6) 29.4 28-32 [facility] HospitalMean Corpuscular Hemoglobin Concent 2018-10-08 06:03:00* Test Item Value Reference Range Interpretation Comments Mean Corpuscular Hemoglobin Concent (test code = 786-4) 32.6 31-35 [facility] HospitalRed Cell Distribution Iausc9126-28-68 06:03:00* Test Item Value Reference Range Interpretation Comments Red Cell Distribution Width (test code = 73202-4) 13.0 11.7 -14.4 [facility] HospitalPlatelet Tpqup9950-51-19 06:03:00* Test Item Value Reference Range Interpretation Comments Platelet Count (test code = 777-3) 123 140-360 L [facility] HospitalNeutrophils (%) (Auto)2018-10-08 06:03:00 * Test Item Value Reference Range Interpretation Comments Neutrophils (%) (Auto) (test code = 04545-2) 66.5 38.7-80.0 [facility] HospitalLymphocytes (%) (Auto)2018-10-08 06:03:00 * Test Item Value Reference Range Interpretation Comments Lymphocytes (%) (Auto) (test code = 736-9) 24.8 18.0-39.1 [facility] HospitalMonocytes (%) (Auto)2018-10-08 06:03:00* Test Item Value Reference Range Interpretation Comments Monocytes (%) (Auto) (test code = 5905-5) 5.8 4.4-11.3 [facility] HospitalEosinophils (%) (Auto)2018-10-08 06:03:00 * Test Item Value Reference Range Interpretation Comments Eosinophils (%) (Auto) (test code = 713-8) 1.7 0.0-6.0 [facility] HospitalBasophils (%) (Auto)2018-10-08 06:03:00* Test Item Value Reference Range Interpretation Comments Basophils (%) (Auto) (test code = 706-2) 0.6 0.0-1.0 [facility] HospitalIM GRANULOCYTES %2018-10-08 06:03:00* Test Item Value Reference Range Interpretation Comments IM GRANULOCYTES % (test code = IM GRANULOCYTES %) 0.6 0.0- 1.0 [facility] HospitalNeutrophils # (Auto)2018-10-08 06:03:00* Test Item Value Reference Range Interpretation Comments Neutrophils # (Auto) (test code = 751-8) 7.2 2.1-6.9 H [facility] HospitalLymphocytes # (Auto)2018-10-08 06:03:00* Test Item Value Reference Range Interpretation Comments Lymphocytes # (Auto) (test code = 08588-3) 2.7 1.0-3.2 [facility] HospitalMonocytes # (Auto)2018-10-08 06:03:00* Test Item Value Reference Range Interpretation Comments Monocytes # (Auto) (test code = 742-7) 0.6 0.2-0.8 [facility] HospitalEosinophils # (Auto)2018-10-08 06:03:00* Test Item Value Reference Range Interpretation Comments Eosinophils # (Auto) (test code = 711-2) 0.2 0.0-0.4 [facility] HospitalBasophils # (Auto)2018-10-08 06:03:00* Test Item Value Reference Range Interpretation Comments Basophils # (Auto) (test code = 704-7) 0.1 0.0-0.1 [facility] HospitalAbsolute Immature Granulocyte (auto 2018-10-08 06:03:00* Test Item Value Reference Range Interpretation Comments Absolute Immature Granulocyte (auto (sandor t code = Absolute Immature Granulocyte (auto) 0.07 0-0.1 [facility] HospitalTotal Xypygomnv1861-53-93 06:51:00* Test Item Value Reference Range Interpretation Comments Total Bilirubin (test code = 1975-2) 1.1 0.2-1.2 [facility] HospitalAspartate Amino Transf (AST/SGOT) 2018-10-07 06:51:00* Test Item Value Reference Range Interpretation Comments Aspartate Amino Transf (AST/SGOT) (test code = Aspartate Amino Transf (AST/SGOT)) 17 5-34 [facility] HospitalAlanine Aminotransferase (ALT/SGPT) 2018-10-07 06:51:00* Test Item Value Reference Range Interpretation Comments Alanine Aminotransferase (ALT/SGPT) (test code = 1742-6) 16 0-55 [facility] HospitalTotal Vqzzmrk7558-75-48 06:51:00* Test Item Value Reference Range Interpretation Comments Total Protein (test code = 2885-2) 5.8 6.5-8.1 L [facility] HospitalAlbumin2019-05-26 06:51:00* Test Item Value Reference Range Interpretation Comments Albumin (test code = 1751-7) 2.8 3.5-5.0 L [facility] HospitalGlobulin2019-05-26 06:51:00* Test Item Value Reference Range Interpretation Comments Globulin (test code = 18562-8) 3.0 2.3-3.5 [facility] HospitalAlbumin/Globulin Wlvqr4621-85-67 06:51:00 * Test Item Value Reference Range Interpretation Comments Albumin/Globulin Ratio (test code = 1759-0) 0.9 0.8-2.0 [facility] HospitalAlkaline Bajijbfhmzu1244-76-57 06:51:00* Test Item Value Reference Range Interpretation Comments Alkaline Phosphatase (test code = 6768-6) 81 40-150 [facility] HospitalTotal Wlcsggwgo4073-28-89 06:51:00* Test Item Value Reference Range Interpretation Comments Total Bilirubin (test code = 1975-2) 1.1 0.2-1.2 [facility] HospitalAspartate Amino Transf (AST/SGOT) 2018-10-07 06:51:00* Test Item Value Reference Range Interpretation Comments Aspartate Amino Transf (AST/SGOT) (test code = Aspartate Amino Transf (AST/SGOT)) 17 5-34 [facility] HospitalAlanine Aminotransferase (ALT/SGPT) 2018-10-07 06:51:00* Test Item Value Reference Range Interpretation Comments Alanine Aminotransferase (ALT/SGPT) (test code = 1742-6) 16 0-55 [facility] HospitalTotal Pcqksnm4599-14-51 06:51:00* Test Item Value Reference Range Interpretation Comments Total Protein (test code = 2885-2) 5.8 6.5-8.1 L [facility] HospitalAlbumin2019-05-26 06:51:00* Test Item Value Reference Range Interpretation Comments Albumin (test code = 1751-7) 2.8 3.5-5.0 L [facility] HospitalGlobulin2019-05-26 06:51:00* Test Item Value Reference Range Interpretation Comments Globulin (test code = 37683-4) 3.0 2.3-3.5 [facility] HospitalAlbumin/Globulin Ojvxo3581-66-08 06:51:00 * Test Item Value Reference Range Interpretation Comments Albumin/Globulin Ratio (test code = 1759-0) 0.9 0.8-2.0 [facility] HospitalAlkaline Brmwrigzgkb2993-59-71 06:51:00* Test Item Value Reference Range Interpretation Comments Alkaline Phosphatase (test code = 6768-6) 81 40-150 [facility] HospitalCT ABDOMEN/PELVIS QX0670-11-07 14:46:00 [facility] [address] [address] Patient Name: SULEMAN BRADSHAW MR #: [id number] : 1945 Age/Sex: 73/M Req #: [id number] Adm Physician: Ordered by: ORLIN HAILE ROOFER Report #: [id number] Location: ER Room/Bed: Procedure: [id number] CT/C T ABDOMEN/PELVIS WO Exam Date: 10/06/18 Exam Time: 1 400 REPORT STATUS: Signed EXAM: CT Abdomen and Pelvis WITHOUT contrast INDICATION: LLQ abdominal pain r/o diverticulitis COMPARISON: None. TECHNIQUE: Abdomen and pelvis were scan christie utilizing a multidetector helical scanner from the lung base to the pubic symphysis without administration of IV contrast. Absence of intravenous contra st decreases sensitivity for detection of focal lesions and vascular pathology . Coronal and sagittal reformations were obtained. Routine protocol was perfor med. IV CONTRAST: None ORAL CONTRAST: Gastrografin COMPLICATIONS: None RADIATION DOSE: Total DLP: 669.13 mGy*cm Estimated effective dose: (DLP x 0.015 x size factor) mSv CTDIvol has been reviewed. It is below the limits set by the Radiation Protocol Committee (RPC). Dose modulation, iterative reconstruction, and/or weight based adj ustment of the mA/kV was utilized to reduce the radiation dose to as low as re asonably achievable. FINDINGS: LINES and TUBES: None. LOWER TH ORAX: Unremarkable HEPATOBILIARY: The liver is diffuse hypodense compared to the spleen, consistent with diffuse hepatic diffuse hepatic steatosis. No focal hepatic lesions. No biliary ductal dilation. GALLBLADDER: No radio -opaque stones or sludge. No wall thickening. Decompressed. SPLEEN: No s plenomegaly. PANCREAS: No focal masses or ductal dilatation. ADRENA LS: No adrenal nodules KIDNEYS/URETERS: No hydronephrosis. 6.9 cm cyst in the inferior pole of the right kidney. 3.6 cm cyst in the superior pole of the left kidney. No stones. GI TRACT: No abnormal distention, wall thicken ing, or evidence of bowel obstruction. Acutely inflamed sigmoid colon with mu ltiple diverticula and wall thickening and surrounding inflammatory changes. A dditional scattered colonic diverticula. Appendix is normal. PELVIC ORGAN S/BLADDER: Unremarkable. LYMPH NODES: No lymphadenopathy. VESSELS: The re is mild atherosclerotic disease in the aorta and major arterial branches. S evere atherosclerotic calcifications in the left common iliac artery with dila tation measuring up to 2.2 cm. Right common iliac artery measures 1.3 cm. PERITONEUM / RETROPERITONEUM: No free air or fluid. BONES: There are degen erative changes in the lumbar spine. SOFT TISSUES: Bilateral fat-containing direct inguinal hernias. Surgical clip in the right inguinal region. Fluid in the left inguinal canal. IMPRESSION: 1. Significant acute sigmoid diverticulitis. Given patient's age, recommend follow-up with colonosc opy to exclude possible underlying neoplasm. 2. Diffuse hepatic steatosis. Signed by: Dr. [place] Scott M.D. on 10/06/2018 2:51 PM Dictated By: FLORIDA SCOTT MD 50 Transcribed By: CONCHITA BENITES on 10/06/18 145 COPY TO: ORLIN HAILE ROOFER Amylase Level 2018-10-06 13:25:00* Test Item Value Reference Range Interpretation Comments Amylase Level (test code = 1798-8) [facility] HospitalLipase2019-05-25 13:25:00* Test Item Value Reference Range Interpretation Comments Lipase (test code = 3040-3) [facility] HospitalAmylase Impwp4683-34-69 13:25:00* Test Item Value Reference Range Interpretation Comments Amylase Level (test code = 1798-8) [facility] HospitalLipase2019-05-25 13:25:00* Test Item Value Reference Range Interpretation Comments Lipase (test code = 3040-3) [facility] HospitalUrine [id number] 13:21:00* Test Item Value Reference Range Interpretation Comments Urine WBC (test code = 5821-4) 0-5 0-5 [facility] PMX2495-28-41 13:21:00* Test Item Value Reference Range Interpretation Comments Urine RBC (test code = 10667-6) NONE 0-5 [facility] HospitalU[facility] Xrxksoxp3816-54-74 13:21:00* Test Item Value Reference Range Interpretation Comments Urine Bacteria (test code = 48936-8) MANY NONE H [facility] HospitalUrine Epithelial Dkuxh9061-67-19 13:21:00 * Test Item Value Reference Range Interpretation Comments Urine Epithelial Cells (test code = 33952-8) MANY NONE [facility] HospitalUrine UMH6980-23-31 13:21:00* Test Item Value Reference Range Interpretation Comments Urine WBC (test code = 5821-4) 0-5 0-5 [facility] NFN2301-34-80 13:21:00* Test Item Value Reference Range Interpretation Comments Urine RBC (test code = 56203-9) NONE 0-5 [facility] HospitalU[facility] Qyepmhij8388-33-20 13:21:00* Test Item Value Reference Range Interpretation Comments Urine Bacteria (test code = 53717-7) MANY NONE H [facility] HospitalUrine Epithelial Zhbag7149-47-23 13:21:00 * Test Item Value Reference Range Interpretation Comments Urine Epithelial Cells (test code = 95515-2) MANY NONE [facility] HospitalUrine Vrqov1262-47-65 13:06:00* Test Item Value Reference Range Interpretation Comments Urine Color (test code = 5778-6) YELLOW YELLOW [facility] HospitalUrine Xulinfc2032-62-23 13:06:00* Test Item Value Reference Range Interpretation Comments Urine Clarity (test code = 95935-6) SL CLOUDY CLEAR H [facility] HospitalUrine Specific Nsdccsp5774-67-82 13:06:00 * Test Item Value Reference Range Interpretation Comments Urine Specific Ensign (test code = 5811-5) 1.015 1.010-1.02 5 [facility] HospitalUrine pH3095-90-03 13:06:00* Test Item Value Reference Range Interpretation Comments Urine pH (test code = 00717-1) 6 5-7 [facility] Leukocyte Ogawepqp4855-36-56 13:06:00* Test Item Value Reference Range Interpretation Comments Urine Leukocyte Esterase (test code = 24407-4) NEGATIVE NEGATIV E [facility] Wsqmwfr4215-39-26 13:06:00* Test Item Value Reference Range Interpretation Comments Urine Nitrite (test code = 37838-9) NEGATIVE NEGATIVE [facility] Unfxkpe0893-87-95 13:06:00* Test Item Value Reference Range Interpretation Comments Urine Protein (test code = 84119-0) 2+ NEGATIVE H [facility] HospitalUrine Glucose (UA)2018-10-06 13:06:00* Test Item Value Reference Range Interpretation Comments Urine Glucose (UA) (test code = 15792-4) NEGATIVE NEGATIVE [facility] Mlbuztc1209-82-31 13:06:00* Test Item Value Reference Range Interpretation Comments Urine Ketones (test code = 01966-0) TRACE NEGATIVE H [facility] Fgdlsznyszda7872-11-11 13:06:00* Test Item Value Reference Range Interpretation Comments Urine Urobilinogen (test code = 36315-3) 1 0.2-1 [facility] Jlmdftedx1872-80-14 13:06:00* Test Item Value Reference Range Interpretation Comments Urine Bilirubin (test code = 1977-8) SMALL NEGATIVE [facility] [id number] 13:06:00* Test Item Value Reference Range Interpretation Comments Urine Blood (test code = 84897-5) [facility] [id number] 13:06:00* Test Item Value Reference Range Interpretation Comments Urine Color (test code = 5778-6) YELLOW YELLOW [facility] [id number] 13:06:00* Test Item Value Reference Range Interpretation Comments Urine Clarity (test code = 45449-0) SL CLOUDY CLEAR H [facility] Specific [id number] 13:06:00 * Test Item Value Reference Range Interpretation Comments Urine Specific Ensign (test code = 5811-5) 1.015 1.010-1.02 5 [facility] [id number] 13:06:00* Test Item Value Reference Range Interpretation Comments Urine pH (test code = 10956-1) 6 5-7 [facility] Leukocyte [id number] 13:06:00* Test Item Value Reference Range Interpretation Comments Urine Leukocyte Esterase (test code = 08453-2) NEGATIVE NE[facility]IV E [facility] [id number] 13:06:00* Test Item Value Reference Range Interpretation Comments Urine Nitrite (test code = 81032-4) NEGATIVE [facility]IVE [facility] [id number] 13:06:00* Test Item Value Reference Range Interpretation Comments Urine Protein (test code = 72751-2) 2+ NEGATIVE H [facility] Glucose (UA)2018-10-06 13:06:00* Test Item Value Reference Range Interpretation Comments Urine Glucose (UA) (test code = 71061-3) NEGATIVE [facility]IVE [facility] [id number] 13:06:00* Test Item Value Reference Range Interpretation Comments Urine Ketones (test code = 72252-9) TRACE NEGATIVE H [facility] [id number] 13:06:00* Test Item Value Reference Range Interpretation Comments Urine Urobilinogen (test code = 24296-4) 1 0.2-1 [facility] Vpnxgijqs7151-98-30 13:06:00* Test Item Value Reference Range Interpretation Comments Urine Bilirubin (test code = 1977-8) SMALL NEGATIVE [facility] [id number] 13:06:00* Test Item Value Reference Range Interpretation Comments Urine Blood (test code = 06851-6) NEGATIVE NEGATIVE [facility]
--- OUTSIDE RECORDS SUMMARY | 2020-04-10 13:01 | XMS REPORT | Clinical Summary ---
Author Author [facility] Address Unknown Phone Unavailable Care Team Providers Care Cutter Aluminum Sheet Name Role Phone Sharpless PCP Allergies No Known Allergies Medications Not on file Active Problems Not on file Social History Date Tobacco Use Types Packs/Day Years Used Never Assessed Sex Assigned at Date Recorded Not on file Last Filed Vital Signs Not on file Plan of Treatment Not on file Results Not on fileafter 04/10/2019 Insurance Type Payer Benefit Subscriber ID Effective Phone Address Plan / Dates Group [facility] [id number] 2015-P MEDICARE resent [address]V [id number] [facility] (Home) [place] [address]
== END 2020-04-10 13:22 | disposition home or self-care (01) ==
LOC: ER 12:58
DX: N39.0 Urinary tract infection, site not specified (principal); I10 Essential (primary) hypertension; F03.90 Unspecified dementia, unspecified severity, without behavioral disturbance, psychotic disturbance, mood disturbance, and anxiety; Z86.73 Personal history of transient ischemic attack (TIA), and cerebral infarction without residual deficits
CPT/HCPCS: 36415; 80053; 81001; 83690; 85025; 87086; 99283

== ENCOUNTER 2020-05-22 11:53 | Emergency (ER) | payer MEDICARE ==
[~2020-05-22] VITALS: Ht 208.3 cm; Wt 105.2 kg
[2020-05-22] MEDS ORDERED: LIDOPATCH1 EACH TOP (14:20)
== END 2020-05-22 14:32 | disposition home or self-care (01) ==
LOC: ER 12:26
DX: R07.81 Pleurodynia (principal); I10 Essential (primary) hypertension; F03.90 Unspecified dementia, unspecified severity, without behavioral disturbance, psychotic disturbance, mood disturbance, and anxiety; F43.10 Post-traumatic stress disorder, unspecified; Z86.73 Personal history of transient ischemic attack (TIA), and cerebral infarction without residual deficits
CPT/HCPCS: 71045; 99283